=== PATIENT | female | born 1975 | race Caucasian/White ===

== ENCOUNTER 2017-03-25 17:44 | Emergency (ER) | payer BC ==
[~2017-03-25] VITALS: Ht 172.7 cm; Wt 99.8 kg
[2017-03-25 18:23] VITALS: BP 140/80
--- NOTE | 2017-03-25 18:42 | NUR ---
PATIENT TO BED 5
--- NOTE | 2017-03-25 18:50 | NUR ---
41 F BIB W C/O 02/21 "SHARP" BL LOWER BACK RADIATING TO BL LEGS; CMS INTACT; PT HAS HX OF CHRONIC BACK PAIN; PT STATES AROUND 1700 TODAY PT WAS DRIVING AND "ADJUSTED HER BACK" AND BECAME INCONTINENT X 2 BUT WAS CONTIENT X 1 SINCE THEN; PT DENIES ANY RECENT FALLS OR INJURY; DENIES N/V/D; SKIN IS PINK/WARM/DRY; AOX4 WITH EVEN AND STEADY GAIT; RR ARE EVEN AND UNLABORED; VSS; PATIENT POSITIONED FOR COMFORT AND CHANGED INTO GOWN; HOB ELEVATED; BEDRAILS UP X2; BED DOWN. ER MD MADE AWARE OF PT STATUS. WILL CONTINUE TO MONITOR
--- NOTE | 2017-03-25 19:16 | NUR ---
Pt report given to Kim RAYO. Transfer of care at this time.
--- NOTE | 2017-03-25 19:55 | NUR ---
Patient being evaluated by Dr. Deras at bedside.
[2017-03-25] MEDS ORDERED: DIAZEPAM PFS 10 MG/2 ML SYR IM ONE (20:05)
[2017-03-25] MEDS ORDERED: MORPHINE SULFATE 4 MG/ML SYR IM ONE (20:05)
--- NOTE | 2017-03-25 20:50 | NUR ---
Pt states "I'm feeling a little better. I'm going to see my doctor tomorrow to get an MRI."
[2017-03-25 20:52] VITALS: BP 149/95
--- NOTE | 2017-03-25 20:52 | NUR ---
Patient discharged with v/s stable. Written and verbal after care instructions given and explained. Patient verbalized understanding. Ambulatory with steady gait. All questions addressed prior to discharge. Advised to follow up with PMD.
== END 2017-03-25 20:52 | disposition home or self-care (01) ==
LOC: MED 17:44
DX: M54.5 Low back pain (principal); R32 Unspecified urinary incontinence; F17.210 Nicotine dependence, cigarettes, uncomplicated; Z88.2 Allergy status to sulfonamides; Z88.1 Allergy status to other antibiotic agents; Z88.8 Allergy status to other drugs, medicaments and biological substances; Z90.710 Acquired absence of both cervix and uterus
CPT/HCPCS: 81002; 81025; 96372; 99284; J2270; J3360